=== PATIENT | male | born 1955 | race Caucasian/White ===

== ENCOUNTER 2018-12-15 10:53 | Inpatient (IN) | payer OTHER, SELFPAY ==
[2018-12-15 11:09] LABS: #Eosinphils 0.3 thou/uL (0.0-0.7); #Lymphocytes 1.2 thou/uL (1.20-3.40); #Monocytes 0.7 thou/uL (0.11-0.59); #Neutrophils 4.1 thou/uL (1.40-6.50); %Basophils 0.8 % (0.0-1.0); %Eosinophils 4.6 % (0.0-10.0); %Lymphocytes 19.4 % (21.0-51.0); %Monocytes 11.4 % (0.0-10.0); %Neutrophils 63.9 % (42.0-75.0); Hemoglobin 13.5 g/dL (14.0-18.0); Mean Corpuscular Hemoglobin 27.3 pg (27.0-31.0); Mean Corpuscular Volume 85.3 fL (78.0-98.0); Mean Platelet Volume 7.5 fL (7.4-10.4); Platelet Count 426 thou/uL (130-400); RBC Distribution Width 13.6 % (11.5-14.5); Red Blood Cell (RBC) Count 4.93 mill/uL (4.70-6.10); White Blood Cell (WBC) Count 6.4 thou/uL (4.8-10.8)
[2018-12-15] MEDS ORDERED: niCARdipine 20MG In NaCl 20 MG/200 ML BAG ONE (11:10)
[2018-12-15 11:17] LABS: Prothrombin Time 12.8 SEC (12.0-14.7)
[2018-12-15 11:33] LABS: ALT (SGPT) 23 U/L (8-55); AST (SGOT) 15 U/L (5-34); Albumin 4.2 g/dL (3.4-4.8); Alkaline Phosphatase 75 U/L (40-150); Anion Gap 12 mmol/L (10-20); BUN (Urea Nitrogen) 24 mg/dL (8.4-25.7); Bilirubin, Total 0.3 mg/dL (0.2-1.2); CK (CPK) 71 U/L (30-200); Calc. Creatinine Clearance 0 mL/min (70-130); Carbon Dioxide 29 mmol/L (23-31); Chloride 105 mmol/L (98-107); Estimated GFR-MDRD 67; Globulin 3.3 g/dL (2.4-3.5); Glucose 116 mg/dL (80-115); Potassium 3.7 mmol/L (3.5-5.1); Protein, Total 7.5 g/dL (5.8-8.1); Sodium 142 mmol/L (136-145)
--- NOTE | 2018-12-15 12:32 | PDOC.FPRHP ---
- History of Present Illness Chief Complaint: Dysarthria, rt arm weakness History of Present Illness: 63 yo M with PMH of HTN and pre-diabetes presents for dysarthria and rt arm weakness starting this morning. Patient states he woke up at about 5 am and was normal, decided to take a bath. He fell asleep and shortly woke up again and had Rt arm weakness, dysarthria, and was "feeling funny." He was hoping it would improve on its own. He told his and she called 911. States he had difficulty getting out of the bathtub. He was transported via helicopter here. He states he has not been on any medication at all for the past year as he moved here from [place] and did not establish a PCP. He reports dysarthria, weakness right hand, and Rt sided facial numbness and right facial droop. He denies fever/headache, Chest pain or SOB. In helicopter, BP was 200s, he was given labetolol and nitropaste. In the ED, NIH was 4. CT head neg, CTA head/neck showed severe stenosis in L vertebral artery, L mid basilar artery, and Proximal Rt SALES SERVICE TECHNICIAN. Pt was started on cardine drip for concern for hypertensive emergency and blood pressure decreased to 138/87. Discussed TPA risks and benefits with patient, and patient did not want TPA. - Allergies/Adverse Reactions Allergies Allergy/AdvReac Type Severity Reaction Status Date / Time No Known Allergies Allergy Verified 06/02/18 05:40 - Home Medications Medication Instructions Recorded Confirmed Type Dutasteride [Avodart] 0.5 mg PO DAILY #30 cap 06/09/18 12/15/18 Rx Tamsulosin HCl [Flomax] 0.4 mg PO HS #30 cap 06/09/18 12/15/18 Rx Amlodipine [Norvasc] 10 mg PO NOW #14 tab 06/10/18 12/15/18 Rx - History PMHx: PSHx: FHx: Social: - Review of Systems General: denies: fever/chills, other (denied headache) Eyes: denies: eye pain, vision changes ENT: denies: nasal congestion, rhinorrhea Respiratory: reports: cough. denies: congestion, shortness of breath Cardiovascular: denies: chest pain, palpitation Gastrointestinal: denies: nausea, vomiting, diarrhea, constipation Genitourinary: denies: dysuria, other (denies hematuria) Skin: denies: rashes, lesions Musculoskeletal: denies: pain Neurological: reports: numbness (Rt face), weakness (rt arm) Psychological: denies: anxiety, depression - Vital signs BP: [138/87] HR: [66] RR: [] Tmax: [] Pox: [97]% on [RA] Wt: [89.7 kg] - Physical Exam Constitutional: NAD, well developed HEENT: normocephalic and atraumatic, PERRLA, EOMI, conjunctiva clear, grossly normal vision, grossly normal hearing, MMM, oropharynx clear, other (No neck stiffness) Neck: supple -Neck: +cervical LAD Heart: RRR, normal S1/S2, no murmurs/rubs/gallops Lungs: CTAB, no respiratory distress, good air movement, no rales/rhonchi, no wheezing Abdomen: soft, non-tender, bowel sounds present, no masses/distention Musculoskeletal: normal structure, normal tone, ROM grossly normal Neurological: other (NIH of 8. Rt face numbness, slight rt facial droop, dysarthria, +Rt arm drift, + Rt arm limb ataxia, +RLE limb ataxia. Strength 3/5 RUE, 5/5 RLE, 5/5 in LUE and LLE.) Skin: good turgor, capillary refill <2 seconds, other (Rash on LLE medial heel. Scarring on RUE and LUE pt states is from dog attack. Rt thumb missing tip (pt states from old accident)) Heme/Lymphatic: no unusual bruising or bleeding Psychiatric: normal mood and affect, intact recent and remote memory FMR H&P: Results - Labs Result Diagrams: 12/15/18 10:59 12/15/18 10:59 Lab results: WBC 6.4 thou/uL (4.8-10.8) 12/15/18 10:59 Hgb 13.5 g/dL (14.0-18.0) L 12/15/18 10:59 Hct 42.1 % (42.0-52.0) 12/15/18 10:59 MCV 85.3 fL (78.0-98.0) 12/15/18 10:59 Plt Count 426 thou/uL (130-400) H 12/15/18 10:59 Neutrophils % 63.9 % (42.0-75.0) 12/15/18 10:59 Sodium 142 mmol/L (136-145) 12/15/18 10:59 Potassium 3.7 mmol/L (3.5-5.1) 12/15/18 10:59 Chloride 105 mmol/L (98-107) 12/15/18 10:59 Carbon Dioxide 29 mmol/L (23-31) 12/15/18 10:59 BUN 24 mg/dL (8.4-25.7) 12/15/18 10:59 Creatinine 1.11 mg/dL (0.7-1.3) 12/15/18 10:59 Glucose 116 mg/dL (80-115) H 12/15/18 10:59 Calcium 10.0 mg/dL (7.8-10.44) 12/15/18 10:59 Total Bilirubin 0.3 mg/dL (0.2-1.2) 12/15/18 10:59 AST 15 U/L (5-34) 12/15/18 10:59 ALT 23 U/L (8-55) 12/15/18 10:59 Alkaline Phosphatase 75 U/L (40-150) 12/15/18 10:59 Creatine Kinase 71 U/L (30-200) 12/15/18 10:59 Serum Total Protein 7.5 g/dL (5.8-8.1) 12/15/18 10:59 Albumin 4.2 g/dL (3.4-4.8) 12/15/18 10:59 - EKG Interpretation EKG: NSR - Radiology Interpretation CT scan - head Status: image reviewed by me Additional comment: Negative for intracranial bleed Other Status: image reviewed by me Additional comment: CTA Head/neck: Severe stenosis of: L vertebral artery, L mid basilar artery, Prox right SALES SERVICE TECHNICIAN FMR H&P: A/P - Problem List (1) Stroke Current Visit: Yes Status: Acute Code(s): I63.9 - CEREBRAL INFARCTION, UNSPECIFIED (2) History of prediabetes Current Visit: Yes Status: Chronic Code(s): Z87.898 - PERSONAL HISTORY OF OTHER SPECIFIED CONDITIONS - Plan Stroke - Last known normal between 5 and 8 AM - CT Head- neg - CTA head/neck: Severe stenosis of: L vertebral artery, L mid basilar artery, Prox right SALES SERVICE TECHNICIAN - NIH of 4 in ED, cardine drip started and discontinued - NIH of 8. Rt face numbness, slight rt facial droop, dysarthria, +Rt arm drift , + Rt arm limb ataxia, +RLE limb ataxia. Strength 3/5 RUE, 5/5 RLE, 5/5 in LUE and LLE. - Admit to Tele inpatient, q4h neuro checks - MRI ordered - Allow permissive HTN, PRNs for BP >220/110 - Started aspirin - Started statin - AM FLP pending - Will consult neuro - NPO until speech clears - Speech/OT/PT consulted - Pt refused TPA in Ed, benefits and risks discussed Prediabetes -A1C pending DVT ppx: lovenox Code status: full Diet: NPO until speech clears, then heart healthy Dispo: admit to tele inpt PCP: no pcp FMR H&P: Upper Level - Plan Date/Time: 12/15/18 1231 HPI: This is a 63 yo gentleman presenting with stroke symptoms that started sometime between 0500 and 0830 this AM. He states he did not wake up with symptoms when he woke up at 0500, he then went to take a bath and states when he was done he needed his to help him get out of the bath tub and she noted slurring of his speech so called 911. He has history of htn and dm2 and has not seen a doctor for some time. He states he ran out of his meds at least a year ago and has not been taking anytihg since that time. He denies smoking or drugs, but did have about 20 years that he would drink a pack a day of beer. States he quit about 4 years ago. REVIEW OF SYSTEMS: Gen: no fever, chills, or sweats Neuro: no headaches, no numbness/tingling, weakness Eyes: no visual changes ENT: no hearing changes, no sore throat, no runny nose Resp: no cough, no SOB, no wheeze Card: no chest pain, no palpitations GI: no appetite change, no diarrhea or constipation, no nausea/vomiting, no blood in stool : no dysuria, no hematuria, no incontinence, no change in frequency Skin: no rash, no erythema PHYSICAL EXAMINATION: General: NAD, alert and oriented x3 HEENT: PERRLA, EOMI, normal sclera, oropharynx without erythema or exudate Neck: Supple. Full ROM. Heart/Cardiovascular System: No r/m/g. RRR. Cap refill < 3 seconds, good pulses in all extremities Lungs/Respiratory System: clear to auscultation bilaterally. No increased work of breathing. Room air. Abdomen/Gastro-Intestinal System: non-tender, normal bowel sounds, no masses, no organomegaly Extremeties: Warm extremities. No cyanosis or edema. Neuro: Mild slurring of speech, understandable but slurs at the end of phrases, very mild rt sided facial droop at the lips, rt arm drift, does not hit the bed but does drop when asked to hold out in front, ataxia of R leg and arm Psychiatry: Awake, Alert and cooperative with exam Skin: No lesions, rashes Musculoskeletal: Full ROM, Strength 5/5 in all 4 extremities ASSESSMENTANDPLAN: # Probable CVA - NIHSS 8 - Risk factors: poorly controlled HTN, DM - Statin, ASA - CTA head/neck shows stenosis affecting vertebral art, basilar art, rt SALES SERVICE TECHNICIAN. Carotids appear clear - Will get MRI - Neurology consulted appreciate recs - Risks/benefits of Tpa discussed with patient, patient opts to avoid tpa - Permissive htn 24hrs - A1C, FLP - Discussed case with Neurosurg, does not appear to be candidate for endovascular intervention # HTN - does not remember home meds - permissive htn 220/110 since no tpa, 24hrs # DM - check A1C Fluids: LR 100ml/hr Diet: NPO Code: Full PPx: lovenox PCP: CC Dispo: >2 midnights, inpatient, pending MRI, neuro eval, ST/PT/OT CONSULTS: Neuro Addendum - Attending - Attending Attestation Date/Time: 12/15/18 9026 I personally evaluated the patient and discussed the management with Dr. Sea Espinoza /Alana Espinoza. I agree with the History, Examination, Assessment and Plan documented above with any addition or exceptions noted below. Patient with acute onset of R facial droop, dysarthria, R sided weakness that began suddenly this morning in the setting of uncontrolled HTN. CT negative for bleed, CTA shows stenosis in multiple vessels. His exam shows mild R facial droop, R sided weakness, and dysarthria. Patient will be admitted for presumed L distribution CVA. ASA, permissive HTN, statin. Obtain MRI and ECHO. Consult Neuro and therapy services. Patient declined tPA during evaluation by ERMD and was unsure exactly when deficits began.
--- NOTE | 2018-12-15 13:12 | CT ---
HEAD CT WITHOUT CONTRAST: HISTORY: Stroke alert. Last seen normal at 8:30 this morning. Right-sided weakness. Slurred speech. FINDINGS: No parenchymal hemorrhage. No extraaxial hematoma. No midline shift. Basilar cisterns are patent. Age-appropriate brain volume. Cortical michael-white matter differentiation is preserved. No evidence of hydrocephalus. White matter hypodensities or chronic small-vessel ischemic change. H ypoattenuation in the left subinsular cortex suggesting remote white matter change. Intact calvarium. Adequate aeration of the mastoid air cells. Mild bilateral maxillary sinus mucosal disease. IMPRESSION: No acute intracranial process. Results of the study discussed with Dr. Zimmer 12/15/2018 at 11:02 a.m. CODE CR POS: [facility]
--- NOTE | 2018-12-15 13:49 | CT ---
CT ANGIOGRAM OF THE HEAD CT ANGIOGRAM OF THE NECK: HISTORY: Stroke alert. Slurred speech and right-sided weakness, beginning at 8:30 this morning. COMPARISON: None. TECHNIQUE: CT angiogram of the head and neck is performed in the axial plane. Three-dimensional reformatted asia ges are submitted for interpretation. FINDINGS: Cortical michael-white matter differentiation is preserved on the postcontrast images. There is no path ologic enhancement of the brain parenchyma. Bilateral orbits are unremarkable. Mild mucosal disease involving the left and right maxillary sinuses. Bilateral mastoid air cells are adequately aerated. Periodontal disease involving the posterior most right maxillary molar tooth as well as the posterior most right mandibular molar tooth. There is expansion of the right mandible with erosion involving the medial and lateral cortex. No evidence of associated soft tissue abscess. No obvious masses in the oral cavity. Limited evaluation due to extensive dental amalgam artifact. Epiglottis has a norm al caliber. Preepiglottic fat is preserved. There is no prevertebral soft tissue swelling. Symmetric attenuation of the sternocleidomastoid muscles, parotid and submandibular glands. Unremark able thyroid gland. No evidence of lymphadenopathy by size criteria. There are varying degrees of central canal stenosis and neural foraminal narrowing on the basis of de generative change. Evaluation is limited by technique. Upper mediastinum is unremarkable. Visualized lung apices have ground-glass opacities, nonspecific. CT ANGIOGRAM: Visualized aortic arch is unremarkable. There is mild atherosclerosis of the descending thoracic aor ta. RIGHT CAROTID: The right carotid artery origin, common carotid artery, carotid bifurcation, and internal carotid art aydee have appropriate enhancement and luminal diameter. There is no significant stenosis based upon N ASCET criteria. LEFT CAROTID: The left carotid artery origin, common carotid artery, carotid bifurcation, and internal carotid jane ry have appropriate enhancement and luminal diameter. There is no significant stenosis based upon NA SCET criteria. Both cervical vertebral arteries are patent throughout their course in the neck and a re essentially codominant. Bilateral subclavian arteries are also patent. CT ANGIOGRAM OF THE HEAD: There is symmetric enhancement and luminal diameter of the distal cervical and intracranial internal carotid arteries. ANTERIOR CIRCULATION: There is symmetric enhancement in luminal diameter of the M1 segments. The right A1 segment is sligh tly smaller on the contralateral side and likely represents a congenital variant. Proximal A2 segmen ts are unremarkable. Proximal left and right MCA branches are also symmetric. POSTERIOR CIRCULATION: Both PICA artery origins are unremarkable. There is short-segment severe stenosis involving the intr acranial left vertebral artery. Both vertebral arteries supply the basilar artery. There is short-s egment severe stenosis involving the mid portion of the basilar artery. The distal basilar artery is patent. The left P1 segment has appropriate enhancement and luminal diameter. The right [employer] has a origin. There is short-segment severe stenosis involving the proximal right posterior cerebral artery. IMPRESSION: 1. Short-segment severe stenosis involving the mid portion of the basilar artery as well as the prox imal aspect of the right posterior cerebral artery. 2. No significant stenosis with regards to the anterior [place] of [place]. 3. No evidence of significant stenosis of either cervical carotid artery based upon NASCET criteria. 4. Results of the study discussed with Dr. Zimmer 12/15/2018 at 11:16 a.m. JAMEY ESTEVEZ POS: [facility]
[2018-12-15 13:50] LABS: Hemoglobin A1c 5.5 % (4.0-6.0)
[2018-12-15] MEDS ORDERED: Ondansetron PF 4 MG/2 ML Vial IVP PRN (14:35)
[2018-12-15] MEDS ORDERED: Ondansetron ODT 4 MG TAB SL PRN (14:35)
[2018-12-15] MEDS ORDERED: Acetaminophen 325 MG TAB PO PRN (14:35)
[2018-12-15] MEDS ORDERED: hydrALAZINE 20 MG/ML VIAL SLOW IVP PRN (14:46)
[2018-12-15] MEDS ORDERED: Labetalol HCl 100 MG/20 ML VIAL SLOW IVP PRN (14:46)
[2018-12-15] MEDS ORDERED: Enoxaparin Sodium 40 MG/0.4 ML SYRINGE SC SCH (15:00)
[2018-12-15 15:16] VITALS: BMI 28.4
[2018-12-15 15:17] LABS: Cardiac Risk 5.8 (Less than 4.5)
[2018-12-15] MEDS: Lactated Ringer's 1,000 ML IV SCH (16:04)
[2018-12-15] MEDS ORDERED: ISOVUE-370 76%-LOCM 1 ML ONE (16:56)
[2018-12-15 17:40] LABS: Troponin I Less than 0.010 ng/mL (< 0.028)
--- NOTE | 2018-12-15 19:46 | PDOC.EVN ---
Event Note - Event Note Event Note: Called to code abraham at 1930 due to change in neurologic status. Patient remained A&O x3 however nurse noticed increased slurring and RUE and RLE weakness. R upper and lower extremities 3/5 strength with dysarthria. Facial droop at baseline; unchnaged per nurse. Rest of neuro exam unremarkable. NIHSS 13 (up from 8 at admission). Patient denied any chest pain, headache or other symptoms. Vital signs were wnl. Instructions were given to continue neuro checks q4hr and repeat CT brain to r/o ICH with labs drawn.
--- NOTE | 2018-12-15 19:51 | PDOC.EVN ---
Event Note - Event Note Event Note: Paged to room via Code Green for increase of NIH stroke score from 8 -->13. Increased slurring of speech and R arm drifting. Vital signs WNL. Pt oriented x2 and not complaining of pain, SOB, chest pain, fever. Does state his R side feels weaker than before. Reviewed previous CTA and deficits noted. MRI is still pending at this point. Will re-scan his brain via CT to r/o hemorrhage and plan for routine MRI. S/p ASA in ED and statin scheduled tonight. Also allowing permissive HTN for 24 hrs and overnight. Will plan to continue regular neuro checks. Consider higher level of care if vitals become abnormal or deficits continue to worsen. Discussed plan with Dr Cerda and Dr Chata Miller. Shane Brady DO
[2018-12-15 20:03] LABS: CKMB 1.1 ng/mL (0-6.6); Troponin I Less than 0.010 ng/mL (< 0.028)
[2018-12-15 20:07] LABS: Anion Gap 13 mmol/L (10-20); BUN (Urea Nitrogen) 22 mg/dL (8.4-25.7); CK (CPK) 52 U/L (30-200); Calc. Creatinine Clearance 79 mL/min (70-130); Calcium 9.7 mg/dL (7.8-10.44); Carbon Dioxide 25 mmol/L (23-31); Chloride 107 mmol/L (98-107); Estimated GFR-MDRD 61; Glucose 102 mg/dL (80-115); Sodium 141 mmol/L (136-145)
--- NOTE | 2018-12-15 20:13 | CT ---
CT BRAIN WITHOUT CONTRAST: History: Change in mental status. Comparison: None. FINDINGS: There is extensive subcortical and deep white matter microvascular ischemic changes. Hypodensity of t he external capsule on the left as well as the left thalamus. Left thalamic hypodensity appears mildl y more prominent than on the prior examination. Calvarium is intact. Paranasal sinuses and mastoids are clear. IMPRESSION: Similar examination of the brain with subtle increased conspicuity in the left thalamic hypodensity a lthough this was present on the prior exam. No definite new infarction. No hemorrhage. POS: [facility]
[2018-12-15] MEDS ORDERED: Atorvastatin Calcium 40 MG TAB PO SCH (21:00)
[2018-12-16 03:36] LABS: Cocaine Metabolite Screen Not Detected (NotDetected); Medtox Reader # READER 4; Phencyclidine (PCP) Not Detected (NotDetected); THC/Cannabinoid Screen Not Detected (NotDetected)
[2018-12-16 03:37] LABS: Amphetamine Detected (NotDetected); Barbiturates Screen Not Detected (NotDetected); Benzodiazepine Screen Not Detected (NotDetected); Medtox Control Line Valid? VALID (VALID); Methadone Not Detected (NotDetected); Methamphetamine Detected (NotDetected); Opiate Screen Not Detected (NotDetected); Oxycodone Screen Not Detected (NotDetected); Tricyclic Screen Not Detected (NotDetected)
[2018-12-16] MEDS: Lactated Ringer's 1,000 ML IV SCH (05:22)
--- NOTE | 2018-12-16 05:28 | PDOC.FM ---
- Subjective Subjective: Patient reports no improvement in symptoms overnight. Says strength and dysarthria are the same as admission. Denies any headache, blurry vision, chest pain, or SOB. - Objective MAR Reviewed: Yes Vital Signs & Weight: Vital Signs (12 hours) Temp Pulse Pulse Pulse Resp Resp Resp 12/16/18 00:15 98.1 F 75 18 12/15/18 22:00 66 18 12/15/18 20:25 12/15/18 19:26 98.2 F 70 18 12/15/18 19:21 74 74 20 20 BP BP BP Pulse Ox Pulse Ox 12/16/18 00:15 170/86 H 95 12/15/18 22:00 147/74 H 96 12/15/18 20:25 96 12/15/18 19:26 165/91 H 95 12/15/18 19:21 154/89 H 136/84 94 L Weight Weight 87.317 kg I&O: 12/14/18 12/15/18 12/16/18 06:59 06:59 06:59 Intake Total 300 Balance 300 Result Diagrams: 12/16/18 06:41 12/15/18 19:31 Phys Exam - Physical Examination Constitutional: NAD HEENT: PERRLA, moist MMs Neck: supple, full ROM Respiratory: no wheezing, no rales, no rhonchi, clear to auscultation bilateral Cardiovascular: RRR, no significant murmur Gastrointestinal: soft, non-tender Musculoskeletal: no edema, pulses present Neurological: normal sensation 3/5 strength in R extremitities w/ mild persistent dysarthria Psychiatric: normal affect, A&O x 3 Skin: no rash, normal turgor Dx/Plan (1) HTN (hypertension) Code(s): I10 - ESSENTIAL (PRIMARY) HYPERTENSION Status: Acute (2) Stroke Code(s): I63.9 - CEREBRAL INFARCTION, UNSPECIFIED Status: Acute (3) History of prediabetes Code(s): Z87.898 - PERSONAL HISTORY OF OTHER SPECIFIED CONDITIONS Status: Chronic (4) ZAIN (acute kidney injury) Code(s): N17.9 - ACUTE KIDNEY FAILURE, UNSPECIFIED Status: Acute (5) HLD (hyperlipidemia) Code(s): E78.5 - HYPERLIPIDEMIA, UNSPECIFIED Status: Acute - Plan Plan: Stroke - Repeat head CT overnight showed larger area of hypodensity on L thalamus. Pt refused TPA in ED after benefits and risks were discussed. 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 - MRI pending this AM. - Stroke team consulted to evaluate patient today. Will likely need rehab upon discharge. - Will start on antihypertensive this AM after 24 hours s/p onset of symptoms. - Will continue ASA & statin & consider increasing statin to 80mg QD. - Will await recs from neurology who was consulted yesterday for further management. HLD - Will continue statin therapy. HTN - Aware, patient's BPs extremely elevated on admission. Latest down to 170/86. Will initiate PO antihypertensive therapy today. ZAIN - eGFR & Cr slightly above baseline per chart review. Likely intrinsic in origin 2/2 poorly controlled HTN. Will initiate antihypertensive therapy today and continue to monitor w/ QD BMPs. Prediabetes -A1C 5.5 on presentation just below level Pre-DM. Will continue HH, low sodium diet. DVT ppx: lovenox Code status: full Diet: HH, low Na Dispo: MRI today and will consult neurology for acute CVA. PCP: no pcp
[2018-12-16 07:08] LABS: #Basophils 0.1 thou/uL (0.0-0.2); #Eosinphils 0.3 thou/uL (0.0-0.7); #Lymphocytes 1.3 thou/uL (1.20-3.40); #Monocytes 0.8 thou/uL (0.11-0.59); #Neutrophils 6.6 thou/uL (1.40-6.50); %Eosinophils 3.8 % (0.0-10.0); %Lymphocytes 14.5 % (21.0-51.0); %Neutrophils 71.7 % (42.0-75.0); Hemoglobin 12.7 g/dL (14.0-18.0); Mean Corpuscular HGB CONC 32.2 g/dL (32.0-36.0); Mean Corpuscular Hemoglobin 27.5 pg (27.0-31.0); Mean Corpuscular Volume 85.4 fL (78.0-98.0); Mean Platelet Volume 7.5 fL (7.4-10.4); Platelet Count 384 thou/uL (130-400); RBC Distribution Width 13.6 % (11.5-14.5); Red Blood Cell (RBC) Count 4.63 mill/uL (4.70-6.10); White Blood Cell (WBC) Count 9.2 thou/uL (4.8-10.8)
[2018-12-16 07:30] LABS: Cardiac Risk 6.8 (Less than 4.5)
[2018-12-16 08:19] LABS: Anion Gap 11 mmol/L (10-20); BUN (Urea Nitrogen) 21 mg/dL (8.4-25.7); Calc. Creatinine Clearance 97 mL/min (70-130); Calcium 9.4 mg/dL (7.8-10.44); Carbon Dioxide 26 mmol/L (23-31); Chloride 108 mmol/L (98-107); Estimated GFR-MDRD 78; Glucose 103 mg/dL (80-115); Potassium 3.9 mmol/L (3.5-5.1); Sodium 141 mmol/L (136-145)
[2018-12-16] MEDS ORDERED: Aspirin 325 mg Enteric Coated Tablet PO SCH ×2 (09:00)
[2018-12-16] MEDS ORDERED: Hydrochlorothiazide 25 MG TAB PO SCH (09:00)
[2018-12-16] MEDS ORDERED: Acetaminophen 325 MG TAB PO PRN (09:25)
[2018-12-16] MEDS ORDERED: Lorazepam 2 MG/ML VIAL SLOW IVP SCH (10:30)
[2018-12-16] MEDS: Enoxaparin Sodium 40 MG/0.4 ML SYRINGE SC SCH (11:44)
[2018-12-16] MEDS ORDERED: Aspirin 81 mg Enteric Coated Tablet PO SCH (12:00)
--- NOTE | 2018-12-16 12:47 | MRI ---
MRI BRAIN WITHOUT CONTRAST: HISTORY: Stroke. COMPARISON: CT brain 12/15/2018. FINDINGS: On the diffusion-weighted imaging sequences, there is abnormal diffusion restriction within the left thalamus. This is confirmed on the ADC map. No other foci of acute diffusion restriction. On the susceptibility weighted imaging sequences, there are no focal areas of acute hemorrhage. The [place] of [place] flow voids are maintained. Moderate microvascular ischemic changes. Evaluation of the clivus is limited due to motion artifact. IMPRESSION: Acute left thalamic infarction. POS: [facility]
[2018-12-16] MEDS ORDERED: Labetalol HCl 100 MG/20 ML VIAL SLOW IVP PRN (13:13)
[2018-12-16] MEDS: hydrALAZINE 20 MG/ML VIAL SLOW IVP PRN ×2 (16:06→19:26)
--- NOTE | 2018-12-16 17:16 | PRG ---
DATE OF SERVICE: 12/16/2018 Mr. Mcguire is a 63-year-old white man, who was admitted with a stroke. He was beyond the time for tPA administration. He has history of hypertension and prediabetes. He had an MRI today, which showed an acute left thalamic infarction. He is being managed conservatively with blood pressure control. We have added aspirin and statin and we will continue to follow with Neurology. OT/PT has been started. Job ID: [id number]
[2018-12-16] MEDS: Atorvastatin Calcium 40 MG TAB PO SCH (21:27)
[2018-12-16] MEDS: Metoprolol Tartrate 25 MG TAB PO SCH (21:27)
[2018-12-16] MEDS: Hydrochlorothiazide 25 MG TAB PO SCH (21:27)
[2018-12-17 05:43] LABS: #Basophils 0.1 thou/uL (0.0-0.2); #Eosinphils 0.3 thou/uL (0.0-0.7); #Lymphocytes 1.2 thou/uL (1.20-3.40); #Monocytes 0.8 thou/uL (0.11-0.59); #Neutrophils 5.9 thou/uL (1.40-6.50); %Basophils 0.8 % (0.0-1.0); %Eosinophils 3.2 % (0.0-10.0); %Lymphocytes 14.2 % (21.0-51.0); %Monocytes 10.1 % (0.0-10.0); %Neutrophils 71.7 % (42.0-75.0); Hemoglobin 13.9 g/dL (14.0-18.0); Mean Corpuscular HGB CONC 32.1 g/dL (32.0-36.0); Mean Corpuscular Hemoglobin 27.4 pg (27.0-31.0); Mean Corpuscular Volume 85.2 fL (78.0-98.0); Mean Platelet Volume 7.5 fL (7.4-10.4); Platelet Count 410 thou/uL (130-400); RBC Distribution Width 13.6 % (11.5-14.5); Red Blood Cell (RBC) Count 5.09 mill/uL (4.70-6.10); White Blood Cell (WBC) Count 8.2 thou/uL (4.8-10.8)
[2018-12-17 06:04] LABS: Anion Gap 14 mmol/L (10-20); BUN (Urea Nitrogen) 15 mg/dL (8.4-25.7); Calc. Creatinine Clearance 97 mL/min (70-130); Calcium 9.6 mg/dL (7.8-10.44); Carbon Dioxide 24 mmol/L (23-31); Chloride 102 mmol/L (98-107); Estimated GFR-MDRD 78; Glucose 96 mg/dL (80-115); Potassium 3.8 mmol/L (3.5-5.1); Sodium 136 mmol/L (136-145)
--- NOTE | 2018-12-17 06:10 | PDOC.FM ---
- Subjective Subjective: Patient reports that his symptoms are persistent. Denies any headache, blurry vision, chest pain, or SOB. - Objective MAR Reviewed: Yes Vital Signs & Weight: Vital Signs (12 hours) Temp Pulse Resp BP BP Pulse Ox 12/17/18 04:00 98.4 F 73 18 157/87 H 96 12/17/18 00:00 98.4 F 78 18 167/97 H 95 12/16/18 20:50 94 L 12/16/18 20:00 98.0 F 75 19 178/98 H 94 L 12/16/18 19:26 75 190/90 H 12/16/18 18:33 190/90 H Weight Weight 87.317 kg I&O: 12/15/18 12/16/18 12/17/18 06:59 06:59 06:59 Intake Total 1300 Output Total 200 800 Balance 1100 -800 Result Diagrams: 12/17/18 05:22 12/17/18 05:22 Phys Exam - Physical Examination Constitutional: NAD HEENT: PERRLA, moist MMs Neck: supple, full ROM Respiratory: no wheezing, no rales, no rhonchi, clear to auscultation bilateral Cardiovascular: RRR, no significant murmur Gastrointestinal: positive bowel sounds 4/5 strength in B/L right extremities w/ improved dysarthria Psychiatric: normal affect, A&O x 3 Skin: no rash, normal turgor Dx/Plan (1) HTN (hypertension) Code(s): I10 - ESSENTIAL (PRIMARY) HYPERTENSION Status: Acute (2) Stroke Code(s): I63.9 - CEREBRAL INFARCTION, UNSPECIFIED Status: Acute (3) History of prediabetes Code(s): Z87.898 - PERSONAL HISTORY OF OTHER SPECIFIED CONDITIONS Status: Resolved (4) ZAIN (acute kidney injury) Code(s): N17.9 - ACUTE KIDNEY FAILURE, UNSPECIFIED Status: Resolved (5) HLD (hyperlipidemia) Code(s): E78.5 - HYPERLIPIDEMIA, UNSPECIFIED Status: Chronic - Plan Plan: Stroke - Repeat head CT overnight showed larger area of hypodensity on L thalamus. Pt refused TPA in ED after benefits and risks were discussed. - CTA head/neck showed severe stenosis of L vertebral artery, L mid basilar artery, & Prox right SEWER HAND. - MRI confirmed acute L thalamic ischemic CVA. - Pt & OT recommended rehab upon discharge; however, patient unfunded. CM on board to assist with placement. - Will continue metoprolol & HCTZ and add a third agent today as patient's BP still uncontrolled. - Will continue 81 mg ASA & 80mg atorvastatin QD. - Neurology on board, appreciate recs. HLD - Will continue statin therapy. HTN - Aware, patient's BPs extremely elevated on admission. Had 3 urgency range BPs on 2 agents yesterday. Will continue metoprolol and HCTZ BID and consider adding a 3rd agent such as lisinopril or amlodipine today. Will avoid lisinopril if ZAIN still present. HfpEF: Confirmed on TTE done yesterday. 50-55% EF w/ diastolic dysfunction noted. - BP meds as described above. ZAIN - eGFR & Cr pending for today. ZAIN likely intrinsic in origin 2/2 poorly controlled HTN. Will continue antihypertensive therapy and continue to monitor w / QD BMPs. Prediabetes -A1C 5.5 on presentation just below level Pre-DM. Will continue HH, low sodium diet. DVT ppx: lovenox Code status: full Diet: HH, low Na Dispo: Will continue to tighten BP control. Awaiting recs from for placement. PCP: no pcp
[2018-12-17] MEDS ORDERED: Amlodipine 5 MG TAB PO SCH (09:00)
[2018-12-17] MEDS: Enoxaparin Sodium 40 MG/0.4 ML SYRINGE SC SCH (09:24)
[2018-12-17] MEDS: Metoprolol Tartrate 25 MG TAB PO SCH ×2 (09:25→21:44)
[2018-12-17] MEDS: Aspirin 81 mg Enteric Coated Tablet PO SCH (09:25)
[2018-12-17] MEDS: Hydrochlorothiazide 25 MG TAB PO SCH ×2 (09:25→21:44)
--- NOTE | 2018-12-17 09:46 | HP ---
ADDENDUM: This is an addendum to the note of Dr. Veronika Luevano. Mr. Mcguire is a 63-year-old white male patient with history of hypertension and prediabetes, who presented with a stroke. He was on the tPA window and is being managed expectantly and conservatively. This morning, he is awake and alert. No acute distress. He is still having some movement disorder and dysarthria. He underwent MRI today with . Job ID: [id number]
--- NOTE | 2018-12-17 12:27 | PRG ---
DATE OF SERVICE: 12/17/2018 ADDENDUM: Please add this as an addendum to the note of Dr. Veronika Luevano. Mr. Mcguire is alert and in no distress this morning. He seems to be moving all extremities well and is walking in the hallway. Blood pressure is still not under great control, but we were making daily adjustments in his medications. His CBC is normal. His chem-7 is normal. His last blood pressure was elevated at 174/92. He is undergoing physical therapy and occupational therapy. He is on the appropriate medications, status post stroke, and these will of course be continued to be monitored. Job ID: [id number]
[2018-12-17] MEDS ORDERED: Atorvastatin Calcium 20 MG TAB PO SCH (21:15)
[2018-12-17] MEDS: Atorvastatin Calcium 20 MG TAB PO SCH (21:45)
[2018-12-17] MEDS: Atorvastatin Calcium 40 MG TAB PO SCH (22:43)
--- NOTE | 2018-12-18 00:02 | CON ---
DATE OF CONSULTATION: 12/17/2018 CONSULTING PHYSICIAN: Hospitalist Service. IMPRESSION: 1. 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 2. Vertebral artery and basilar artery stenosis. PLAN: 1. Aspirin and statin. 2. The patient will likely be discharged home due to his lack of funding for home care. HISTORY OF PRESENT ILLNESS: Mr. Mcguire is a 63-year-old man, who came in with acute onset of right-sided weakness and numbness. He had a positive drug screen for methamphetamines. His CTA showed stenosis as noted above. MRI of the brain showed a left thalamic stroke. He has no past history of stroke or other vascular risk factors. PAST MEDICAL HISTORY: Otherwise negative. ALLERGIES: NONE. SOCIAL HISTORY: Positive for drug use. FAMILY HISTORY: Noncontributory. REVIEW OF SYSTEMS: Ten-system review of systems otherwise negative. PHYSICAL EXAMINATION: GENERAL: He is a well-nourished middle-aged man, in no acute distress. VITAL SIGNS: Pulse 70, respirations 20, in normal sinus rhythm. HEENT: Pupils are equal and reactive. Conjunctivae clear. Oropharynx clear. NECK: Supple. No lymphadenopathy. EXTREMITIES: No cyanosis or edema. NEUROLOGIC: Alert and cooperative. His speech is fluent and clear. Cranial nerve exam did not show any facial asymmetries. Motor exam showed antigravity strength in the right arm and leg, but his coordination was poor. Sensation was diminished on the right side and he is unable to walk independently. SUMMARY: Middle-aged man who suffered a small stroke in the basilar distribution. It is possible either to be vasospasm or thromboembolic. Routine treatment and plan will be undertaken. Job ID: [id number]
--- NOTE | 2018-12-18 05:17 | PDOC.FM ---
- Subjective Subjective: Patient reports improvement in strength in right side. Denies any headache, blurry vision, chest pain, SOB, or N/V/D. Has agreed to follow-up with [facility] upon discharge for BP control. - Objective MAR Reviewed: Yes Vital Signs & Weight: Vital Signs (12 hours) Temp Pulse Resp BP Pulse Ox 12/18/18 03:56 99.0 F 66 18 150/88 H 96 12/18/18 00:00 98.2 F 79 19 145/96 H 95 12/17/18 21:10 95 12/17/18 20:00 97.9 F 71 18 170/92 H 95 Weight Weight 87.317 kg I&O: 12/16/18 12/17/18 12/18/18 06:59 06:59 06:59 Intake Total 1300 300 Output Total 200 1000 350 Balance 1100 -700 -350 Result Diagrams: 12/17/18 05:22 12/18/18 05:22 Phys Exam - Physical Examination Constitutional: NAD HEENT: moist MMs Neck: supple, full ROM Respiratory: no wheezing, no rales, no rhonchi, clear to auscultation bilateral Cardiovascular: RRR, no significant murmur Gastrointestinal: positive bowel sounds Neurological: moves all 4 limbs 4/5 strength in R extremities w/ significantly improvement in dysarthria Psychiatric: normal affect, A&O x 3 Skin: no rash, normal turgor Dx/Plan (1) HTN (hypertension) Code(s): I10 - ESSENTIAL (PRIMARY) HYPERTENSION Status: Acute (2) Stroke Code(s): I63.9 - CEREBRAL INFARCTION, UNSPECIFIED Status: Acute (3) History of prediabetes Code(s): Z87.898 - PERSONAL HISTORY OF OTHER SPECIFIED CONDITIONS Status: Resolved (4) ZAIN (acute kidney injury) Code(s): N17.9 - ACUTE KIDNEY FAILURE, UNSPECIFIED Status: Resolved (5) HLD (hyperlipidemia) Code(s): E78.5 - HYPERLIPIDEMIA, UNSPECIFIED Status: Chronic - Plan Plan: Stroke - Second head CT on admission showed larger area of hypodensity on L thalamus. Pt refused TPA in ED after benefits and risks were discussed. - CTA head/neck showed severe stenosis of L vertebral artery, L mid basilar artery, & Prox right [employer] CHIEF. - MRI confirmed acute L thalamic CVA. CVA could be thrombotic and/or 2/2 vasospasm from meth use. Will treat for thrombotic; however, given stenosis seen on CTA. - Pt & OT recommended rehab upon discharge; however, patient unfunded. CM on board to assist with placement. Will likely go home w/ resources and close f/u w / [facility] if cas bed denied. - Will continue metoprolol, HCTZ and norvasc & adjust as described below. - Will continue 81 mg ASA & 80mg atorvastatin QD. - Neurology on board, appreciate recs. HLD - Will continue statin therapy. HTN - Aware, patient's BPs extremely elevated on admission. Will continue metoprolol , HCTZ, & norvasc but will increase norvasc today and possibly metoprolol as BP still not at goal. However, no severe/urgency range pressures yesterday so can continue to titrate BP meds on outpatient basis. HfpEF: - Confirmed on TTE done yesterday. 50-55% EF w/ diastolic dysfunction noted. - BP meds as described above. ZAIN - Resolved. - Will continue antihypertensive therapy and continue to monitor w/ QD BMPs. Prediabetes -A1C 5.5 on presentation just below level Pre-DM. Will continue HH, low sodium diet. DVT ppx: lovenox Code status: full Diet: HH, low Na Dispo: Will titrate BP meds. Possible d/c home today if denied from rehab cas bed per patient's preferences. PCP: no pcp; will instruct to follow-up w/ [facility]
[2018-12-18 05:58] LABS: Anion Gap 16 mmol/L (10-20); BUN (Urea Nitrogen) 25 mg/dL (8.4-25.7); Calc. Creatinine Clearance 78 mL/min (70-130); Carbon Dioxide 23 mmol/L (23-31); Chloride 102 mmol/L (98-107); Estimated GFR-MDRD 61; Glucose 86 mg/dL (80-115); Sodium 137 mmol/L (136-145)
[2018-12-18] MEDS: Enoxaparin Sodium 40 MG/0.4 ML SYRINGE SC SCH (10:05)
[2018-12-18] MEDS: Metoprolol Tartrate 25 MG TAB PO SCH ×2 (10:06→20:07)
[2018-12-18] MEDS: Amlodipine 10 MG TAB PO SCH (10:06)
[2018-12-18] MEDS: Aspirin 81 mg Enteric Coated Tablet PO SCH (10:06)
[2018-12-18] MEDS: Hydrochlorothiazide 25 MG TAB PO SCH ×2 (10:07→20:08)
--- NOTE | 2018-12-18 12:59 | PRG ---
DATE OF SERVICE: 12/18/2018 Mr. Mcguire is looking remarkably well. He is moving all extremities, walking in the carrillo, having some speech issues, which have however improved. His blood pressure is approaching better levels and we were making dating adjustments in his medications. We also appreciate the input from the Neurology Service. Mr. Mcguire is again mourn to never use methamphetamine again as it could precipitate another stroke. Otherwise, continue medical regimens including blood pressure control, aspirin, and atorvastatin. Job ID: [id number]
[2018-12-18] MEDS: Atorvastatin Calcium 20 MG TAB PO SCH (20:07)
--- NOTE | 2018-12-19 05:35 | PDOC.FM ---
- Subjective Subjective: Patient states he feels well this AM. Reports improvement in speech and weakness. Denies any headache, chest pain, blurry vision, or SOB. - Objective MAR Reviewed: Yes Vital Signs & Weight: Vital Signs (12 hours) Temp Pulse Resp BP Pulse Ox 12/19/18 04:00 97.9 F 71 16 143/86 H 93 L 12/18/18 23:54 99.1 F 64 16 172/89 H 97 12/18/18 20:00 97.9 F 75 16 136/79 95 Weight Weight 87.317 kg I&O: 12/17/18 12/18/18 12/19/18 06:59 06:59 06:59 Intake Total 300 300 Output Total 1000 475 225 Balance -700 -884 -225 Result Diagrams: 12/17/18 05:22 12/19/18 05:14 Phys Exam - Physical Examination Constitutional: NAD HEENT: moist MMs Neck: supple, full ROM Respiratory: no wheezing, no rales, no rhonchi, clear to auscultation bilateral Cardiovascular: RRR, no significant murmur Gastrointestinal: positive bowel sounds Musculoskeletal: no edema Neurological: moves all 4 limbs 4/5 strength in R extremities Psychiatric: normal affect, A&O x 3 Skin: no rash, normal turgor Dx/Plan (1) HTN (hypertension) Code(s): I10 - ESSENTIAL (PRIMARY) HYPERTENSION Status: Acute (2) Stroke Code(s): I63.9 - CEREBRAL INFARCTION, UNSPECIFIED Status: Acute Qualifiers: Laterality of affected vessel: left (3) History of prediabetes Code(s): Z87.898 - PERSONAL HISTORY OF OTHER SPECIFIED CONDITIONS Status: Resolved (4) ZAIN (acute kidney injury) Code(s): N17.9 - ACUTE KIDNEY FAILURE, UNSPECIFIED Status: Resolved (5) HLD (hyperlipidemia) Code(s): E78.5 - HYPERLIPIDEMIA, UNSPECIFIED Status: Chronic - Plan Plan: Stroke - Second head CT on admission showed larger area of hypodensity on L thalamus. Pt refused TPA in ED after benefits and risks were discussed. - CTA head/neck showed severe stenosis of L vertebral artery, L mid basilar artery, & Prox right [employer] SUPER[employer]. - MRI confirmed acute L thalamic CVA. CVA could be thrombotic and/or 2/2 vasospasm from meth use. Will treat for thrombotic given stenosis seen on CTA. - Pt & OT recommended rehab upon discharge; however, patient unfunded. Denied a cas bed for rehab so plan will be home w/ HH PT likely later today w/ close f/u w/ [facility]. - Will continue HCTZ and norvasc & adjust as described below. - Will continue 81 mg ASA & 80mg atorvastatin QD. - Neurology on board, appreciate recs. HLD - Will continue statin therapy. HTN - Aware, patient's BPs extremely elevated on admission. Will continue metoprolol , HCTZ, & norvasc but will increase morning dose of metoprolol today as BP still not at goal & patient maxed out on HCTZ & norvasc. Afrer AM dose will switch from metoprolol to Coreg 12.5mg BID. Had 1 severe/urgency range pressure yesterday so will need to continue to titrate BP meds on outpatient basis. HfpEF: - Confirmed on TTE done yesterday. 50-55% EF w/ diastolic dysfunction noted. - BP meds as described above. ZAIN - Resolved. - Will continue antihypertensive therapy and continue to monitor w/ QD BMPs. Prediabetes, ruled out -A1C 5.5 on presentation just below level Pre-DM. Will continue HH, low sodium diet. DVT ppx: lovenox Code status: full Diet: HH, low Na Dispo: Likely d/c home today w/ fu w/ [facility] on 12/24/18 for BP control. PCP: Will instruct to follow-up w/ [facility] as noted above.
[2018-12-19 06:15] LABS: Anion Gap 15 mmol/L (10-20); BUN (Urea Nitrogen) 31 mg/dL (8.4-25.7); Calc. Creatinine Clearance 73 mL/min (70-130); Calcium 9.9 mg/dL (7.8-10.44); Carbon Dioxide 23 mmol/L (23-31); Chloride 101 mmol/L (98-107); Estimated GFR-MDRD 56; Glucose 95 mg/dL (80-115); Potassium 3.4 mmol/L (3.5-5.1); Sodium 136 mmol/L (136-145)
[2018-12-19] MEDS ORDERED: Metoprolol Tartrate 50 MG TAB PO SCH (09:00)
[2018-12-19] MEDS: Enoxaparin Sodium 40 MG/0.4 ML SYRINGE SC SCH (09:10)
[2018-12-19] MEDS: Amlodipine 10 MG TAB PO SCH (09:10)
[2018-12-19] MEDS: Aspirin 81 mg Enteric Coated Tablet PO SCH (09:10)
[2018-12-19] MEDS: Hydrochlorothiazide 25 MG TAB PO SCH ×2 (09:10→21:37)
[2018-12-19] MEDS: Potassium Chloride 20 MEQ TAB PO SCH (09:10)
[2018-12-19] MEDS: Atorvastatin Calcium 20 MG TAB PO SCH (21:37)
--- NOTE | 2018-12-20 06:46 | PDOC.FM ---
- Subjective Subjective: Patient states he feels well this AM. Denies any headache, blurry vision, chest pain, N/V/D. - Objective MAR Reviewed: Yes Vital Signs & Weight: Vital Signs (12 hours) Temp Pulse Resp BP Pulse Ox 12/20/18 04:00 97.7 F 105 H 19 173/108 H 98 12/20/18 00:00 98.3 F 93 18 138/87 96 12/19/18 20:00 97.5 F L 73 19 141/88 H 94 L Weight Weight 87.317 kg I&O: 12/18/18 12/19/18 12/20/18 06:59 06:59 06:59 Intake Total 442 921 8510 Output Total 475 1025 225 Balance -362 -934 125 Result Diagrams: 12/17/18 05:22 12/19/18 05:14 Phys Exam - Physical Examination Constitutional: NAD HEENT: PERRLA, moist MMs Neck: supple, full ROM Respiratory: no wheezing, no rales, no rhonchi, clear to auscultation bilateral Cardiovascular: RRR, no significant murmur Gastrointestinal: soft, positive bowel sounds Musculoskeletal: no edema, pulses present Neurological: moves all 4 limbs 4/5 strength in B/L right extremities Psychiatric: normal affect, A&O x 3 Skin: no rash, normal turgor, cap refill <2 seconds Dx/Plan (1) HTN (hypertension) Code(s): I10 - ESSENTIAL (PRIMARY) HYPERTENSION Status: Acute (2) Stroke Code(s): I63.9 - CEREBRAL INFARCTION, UNSPECIFIED Status: Acute Qualifiers: Laterality of affected vessel: left (3) History of prediabetes Code(s): Z87.898 - PERSONAL HISTORY OF OTHER SPECIFIED CONDITIONS Status: Resolved (4) ZAIN (acute kidney injury) Code(s): N17.9 - ACUTE KIDNEY FAILURE, UNSPECIFIED Status: Resolved (5) HLD (hyperlipidemia) Code(s): E78.5 - HYPERLIPIDEMIA, UNSPECIFIED Status: Chronic - Plan Plan: Acute ischemic stroke - Second head CT on admission showed larger area of hypodensity on L thalamus. Pt refused TPA in ED after benefits and risks were discussed. - CTA head/neck showed severe stenosis of L vertebral artery, L mid basilar artery, & Prox right [employer]ORDINATOR. - MRI confirmed acute L thalamic CVA. CVA could be thrombotic and/or 2/2 vasospasm from meth use. Will treat for thrombotic given stenosis seen on CTA. - Will continue HCTZ, norvasc & coreg & adjust as described below. - Will continue 81 mg ASA & 80mg atorvastatin QD. - Neurology on board, appreciate recs. - Pt & OT recommended rehab upon discharge; however, patient unfunded. Denied a cas bed for rehab but accepted for PT. Unsure date of discharge as patient's family is refusing to come and get him from the hospital. Will f/u w/ CM regarding transportation status. HLD - Will continue statin therapy. HTN - Aware, patient's BPs extremely elevated on admission but have drastically improved over the course of hospital stay. Will continue coreg, HCTZ, & norvasc as ABE for today as patient only got 1 dose of coreg 12.5 BID yesterday. BP still not at goal ranging from 132-159 systolic yesterday. Had 1 elevated BP early this AM w/ tachycardia. - Will continue to monitor & titrate meds PRN. HfpEF: - Confirmed on TTE done yesterday. 50-55% EF w/ diastolic dysfunction noted. - BP meds as described above. ZAIN - Repeat BMP pending for today. Renal function has declined over last several days but will likely improve w/ better controlled BP. - Will continue antihypertensive therapy and continue to monitor w/ QD BMPs. Prediabetes, ruled out -A1C 5.5 on presentation just below level Pre-DM. Will continue HH, low sodium diet. DVT ppx: lovenox Code status: full Diet: HH, low Na Dispo: Unsure date of d/c currently. Will f/u w/ CM regarding d/c status. Patient to follow-up w/ [facility] on 12/24/18 for BP control. PCP: Will instruct to follow-up w/ [facility] as noted above.
[2018-12-20] MEDS ORDERED: Carvedilol 6.25 MG TAB PO SCH (08:00)
--- NOTE | 2018-12-20 08:23 | PRG ---
DATE OF SERVICE: ADDENDUM: This is an addendum to the note of Dr. Veronika Luevano. Mr. Mcguire continues to improve and is ambulating in the carrillo without assistance. His blood pressure is coming under much better control with this morning blood pressure of 159/98. We do not anticipate complete normalcy upon discharge. Home PT has been arranged. He will be discharged later today. Job ID: [id number]
[2018-12-20] MEDS: Potassium Chloride 20 MEQ TAB PO SCH (08:27)
[2018-12-20] MEDS: Enoxaparin Sodium 40 MG/0.4 ML SYRINGE SC SCH (08:27)
[2018-12-20] MEDS: Hydrochlorothiazide 25 MG TAB PO SCH (08:28)
[2018-12-20] MEDS: Aspirin 81 mg Enteric Coated Tablet PO SCH (08:28)
[2018-12-20] MEDS: Amlodipine 10 MG TAB PO SCH (08:28)
[2018-12-20 11:26] VITALS: TEMP 97.5
--- NOTE | 2018-12-20 11:28 | PRG ---
DATE OF SERVICE: 12/20/2018 SUBJECTIVE: Mr. Mcguire remains awake and alert. His blood pressure is assuming better controlled, being this morning 136/95. He again is moving all extremities and able to ambulate. Ready for discharge. Job ID: [id number]
[2018-12-20 13:02] VITALS: BP 131/86
--- NOTE | 2018-12-20 20:50 | DIS ---
DATE OF ADMISSION: 12/15/2018 DATE OF DISCHARGE: 12/20/2018 RESIDENT: Veronika Luevano MD CONSULTS: Neurology, Shamar Castañeda MD PROCEDURES: 1. CTA of head and neck on 12/15/2018 significant for short segment severe stenosis involving the midportion of the basilar artery as well as the proximal aspect of the right posterior cerebral artery with no significant stenosis with regard to the anterior iliamna of [place]. No significant stenosis of either cervical carotid artery. 2. Brain CT on 12/15/2018 significant for extensive subcortical and deep white matter microvascular ischemic changes with a hypodensity of the external capsule on the left as well as the left thalamus. Left thalamic hypodensity appears mildly more prominent than on prior examination. 3. Brain MRI on 12/16/2018, which showed an acute left thalamic infarction. 4. Echocardiogram on 12/16/2018, which noted an ejection fraction estimated at 50% to 55% with a flow reversal suggestive of diastolic dysfunction and mild tricuspid and mitral valve regurgitation. PRIMARY DIAGNOSES: 1. Acute ischemic cerebrovascular accident. 2. Hypertensive emergency. 3. Acute kidney injury secondary to hypertensive emergency. SECONDARY DIAGNOSES: 1. Hypertension. 2. Hyperlipidemia. DISCHARGE MEDICATIONS: 1. Acetaminophen 650 mg p.o. every 6 hours p.r.n. for pain. 2. Aspirin 81 mg daily. 3. Atorvastatin 80 p.o. at bedtime. 4. Hydrochlorothiazide 25 mg p.o. b.i.d. 5. Amlodipine 10 mg p.o. daily. 6. Carvedilol 12.5 mg p.o. b.i.d. DISCONTINUED MEDICATIONS: 1. Avodart 0.5 mg p.o. daily. 2. Tamsulosin 0.4 mg p.o. at bedtime. HOSPITAL COURSE: The patient is a 63-year-old gentleman with a past medical history significant for hypertension and reported prediabetes who presented to the emergency department with a chief complaint of dysarthria and right arm weakness that he stated began around approximately 5:00 a.m on the date of presentation. The patient says he remembers falling asleep in the bath tub at home and upon waking noted right arm weakness, dysarthria, and feeling funny that persisted over the course of the morning. He therefore instructed his to call 911 as he had difficulty getting out of the bathtub on his own & was transported to [facility] Emergency Department via helicopter for a suspected cerebrovascular accident. En route to the emergency department, the patient's blood pressure was noted to be in the 200s so he was given labetalol and nitroglycerin paste. In the emergency department, the patient's NIH score was 4 upon arrival & his blood pressure was still noted to be significantly elevated. He was therefore started on a Cardene drip for concern for hypertensive emergency and his blood pressure promptly decreased to a level of 138/87. All other vitals were within normal limits. Routine imaging including a CT head and CTA of the head and neck were obtained which noted no acute intracranial process and severe stenosis in the left vertebral mid basilar and proximal right posterior cerebral arteries, respectively. The risks and benefits of tPA were discussed with the patient and he refused this medication. He was therefore admitted to the Stroke Unit for close monitoring overnight and for routine workup of a presumed acute ischemic CVA. The following morning, an MRI of the brain was obtained, which did show an acute left thalamic infarct. Labwork on admission including a CBC, coag panel, CMP, troponin, and hemoglobin A1c were all within normal limits. However, the patient's urine drug screen came back positive for amphetamines and methamphetamines. In addition, he was noted to have hyperlipidemia with an elevated total cholesterol of 214 and LDL of 148 and an HDL of 37. Thus, after 24 hours from the time of onset of symptoms, the patient was started on antihypertensive therapy as well as aspirin and statin therapy. Neurology was also consulted to come and evaluate the patient and an echocardiogram was obtained, which did note some diastolic dysfunction with a preserved ejection fraction. The following day, Dr. Shamar Castañeda, Neurology, came and evaluated the patient and noted that the patient likely suffered an ischemic stroke secondary to vasospasm from methamphetamine use given the patient's UDS results. However, he did recommend routine treatment with cholesterol-lowering and anti-platelet agents as well as antihypertensive therapy. The patient continued to work with Physical Therapy and Occupational Therapy over the course of his hospital stay, who recommended inpatient rehabilitation upon discharge. However, the patient was noted to be uninsured and was denied a [facility] inpatient rehabilitation bed. Therefore, case management was able to assist the patient in establishing with home health to provide him with ABE cas physical and occupational therapy visits at home. His blood pressure medications were also titrated over the course of his hospital stay so that by the date of discharge, the patient's systolic blood pressures were consistently in the 130s. The patient was therefore cleared for discharge home with home health PT and OT with discharge instructions to follow up with [facility] on December 24, 2018 for close monitoring of his blood pressure and home health surveillance. DISPOSITION: Stable. DISCHARGE INSTRUCTIONS: 1. Location: Home. 2. Diet: Heart healthy diet, low-sodium diet. 3. Activity: Activity as tolerated, no restrictions. 4. Followup: The patient was instructed to follow up with [facility] for a scheduled appointment on December 24, 2018. Job ID: [id number] [id number]
== END 2018-12-20 11:55 | disposition home or self-care (01) | DRG 65 ==
LOC: ERS 10:53 → 2SE 14:24
PROVIDERS: ADMIT Student in an Organized Health Care Education/Training Program; ATTEND Student in an Organized Health Care Education/Training Program
DX: I63.9 Cerebral infarction, unspecified (principal); I50.30 Unspecified diastolic (congestive) heart failure; N17.9 Acute kidney failure, unspecified; R47.81 Slurred speech; R29.810 Facial weakness; I11.0 Hypertensive heart disease with heart failure; E78.5 Hyperlipidemia, unspecified
CPT/HCPCS: 36415; 36416; 70450; 70496; 70498; 70551; 80048; 80053; 80061; 80306; 82550; 82553; 83036; 84484; 85025; 85610; 85730; 90471; 90686; 90732; 93005; 93306; 96365; G0008; G0009; J0360; J1650; J2060; Q9966